=== PATIENT | male | born 1980 | race Caucasian/White ===

== ENCOUNTER 2018-07-11 03:43 | Emergency (ER) | payer SELFPAY ==
[~2018-07-11 03:43] MED LIST: FAMOTIDINE 20 MG/50 ML IVPB 20 MG/50 ML MG IVPB ONE; ONDANSETRON 4 MG/2 ML VIAL IVPUSH ONE
[2018-07-11] MEDS ORDERED: LACTATED RINGERS SOLUTION 1,000 ML IV STA (03:57)
[2018-07-11] MEDS ORDERED: ACETAMINOPHEN 1000 MG/100 ML VIAL (NON FORMULARY) IVPB ONE (03:57)
[2018-07-11] MEDS ORDERED: SODIUM CHLORIDE 0.9% 500 ML INFUS.BAG IV ONE (04:02)
[2018-07-11 04:08] LABS: BASO % 0.2 % (0-2.0); EOS % 0.8 % (0-4.5); HEMATOCRIT 33.5 % (35.4-49); HEMOGLOBIN 11.4 GM/dL (11.7-16.9); LYMPH % 25.3 % (8-40); MCH 29.5 pg (25.7-33.7); MEAN CELL VOLUME 86.7 fl (80-96); NEUT % 59.7 % (42.8-82.8); PLATELET COUNT 228 K/MM3 (134-434); RBC 3.86 M/mm3 (4.00-5.60); RDW 13.8 % (11.9-15.9); WHITE BLOOD COUNT 4.2 K/mm3 (4.0-10.0)
[2018-07-11 04:11] VITALS: BP 137/82; PULSE 94; TEMP 98.6
--- NOTE | 2018-07-11 04:22 | PDOC ---
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 Usually drinks bottle of wine daily. +suspicious food intake , where he had eaten rice and regular food and meat, with one sick coworker as well. Has been off his HAART x3 months due to work and life. Last CD4 check unknown months ago ~600. - Physicial Exam PE: 07/11/18 04:49 NAD, well appearing, comfortable. PERRL, EOMI, MMM, +superficial tongue ulcer, nonbleeding. nl conjunctiva, anicteric; neck supple. lungs clear, RRR, abdomen soft nontender. no angelo's or mcburney's point tenderness. No flank tenderness. exam deferred by patient. VYAS x4, no focal neuro deficits. No peripheral edema. normal color for ethnicity, WWP. 07/11/18 04:53 - Medical Decision Making 07/11/18 04:51 38 YOM with HIV p/w n/v x 2 days, +etoh use. also intermittent lower back tenderness x 1 week, denies exacerbating or alleviating factors. +food precipitant. DDx abdominal pain: Renal colic, biliary colic, metabolic/electrolyte derangements. GERD, PUD, esophageal spasm, pancreatitis, hepatitis, constipation , colitis, gastroenteritis, cholecystitis, UTI, pyelonephritis. STD (GC/ chlamydia, herpetic lesions) Vital signs reviewed, wnl. HR in 90s. Prior notes reviewed, including admissions, discharges and consultations. laboratory results and imaging reviewed, basic labs and lytes wnl, notable for LFTs and lipase_normal. mild anemia noted, unclear prior baseline as no prior results. guaiac neg, so doubt occult GIB as source. UA_negative. In the ED, he was given IVF, antiemetics; no analgesia, no abdominal tenderness or peritoneal findings, nontoxic appearing, doubt emergent or intra abdominal pathology. Given GI cocktail with relief. Tolerated PO challenge on reassessment. no indication for CT imaging at this time as unremarkable physical examination at bedside as documented.. Did defer exam to eval for GC/chlamydia/viral lesions, as he was also poorly cooperative with fully undressing for physical exam and evaluation. with sx and HIV positive history, though limited exam, treat with cef/azithro x1 for presumed STD, f/u pcr testing. f/u urine cultures, prelime does not appear infected Dispo: I discussed the physical exam findings, ancillary test results and final diagnoses with the patient. I answered all of the patient's questions. The patient was satisfied with the care received and felt comfortable with the discharge plan and treatment plan. The patient will return to the Emergency Department with any new, persistent or worsening symptoms. 07/11/18 06:59
--- NOTE | 2018-07-11 04:27 | PDOC ---
History of Present Illness - General History Source: Patient Exam Limitations: No Limitations - History of Present Illness Initial Comments: 07/11/18 04:22 The patient is a 38M with a PMH of HIV (not on medical therapy for 3 months) who presents to the ER with multiple complaints. The patient states that he has had nausea, vomiting, and diarrhea for the past 3-4 days. He states that he initially felt like he was hungover and when his symptoms did not go away and he was not able to tolerate PO for 2 days, he decided to present to the ED. These symptoms are associated with chills but no fevers, CP, or SOB. In addition to this complaint, the patient states that he has had lower back pain for the past week which is associated with tingling. He denies any fevers, IVDA , bowel/bladder incontinence, trauma, numbness, or weakness in his lower extremity. He admits to dysuria without discharge. <Todd Llanos - Last Filed: 07/11/18 06:41> <Jett Krause - Last Filed: 07/11/18 07:15> - General Stated Complaint: VOMITING Time Seen by Provider: 07/11/18 03:46 Past History - Suicide/Smoking/Psychosocial Hx Smoking History: Never smoked Have you smoked in the past 12 months: No Hx Alcohol Use: No Substance Use Type: None <Todd Llanos - Last Filed: 07/11/18 06:41> <Jett Krause - Last Filed: 07/11/18 07:15> - Past Medical History Allergies/Adverse Reactions: Allergies Allergy/AdvReac Type Severity Reaction Status Date / Time No Known Allergies Allergy Verified 02/10/15 13:11 Home Medications: Ambulatory Orders Metoclopramide HCl [Reglan] 10 mg PO TID PRN #20 tablet 02/10/15 Naproxen [Naprosyn -] 500 mg PO BID #30 tablet 02/10/15 Oxycodone HCl/Acetaminophen [Percocet 5/325 -] 1 - 2 tab PO Q6H PRN #20 tab Ondansetron [Zofran -] 4 mg PO TID #14 tablet 07/11/18 Review of Systems - Review of Systems Able to Perform ROS?: Yes Comments:: 07/11/18 04:29 GENERAL/CONSTITUTIONAL: Positive for chills. No fever. No weakness. HEAD, EYES, EARS, NOSE AND THROAT: No change in vision. No ear pain or discharge. No sore throat. CARDIOVASCULAR: No chest pain, palpitations, or lightheadedness. RESPIRATORY: No cough, wheezing, shortness of breath, or hemoptysis. GASTROINTESTINAL: Positive for nausea, vomiting, and diarrhea. GENITOURINARY: Positive for dysuria. No frequency, hematuria, or change in urination. MUSCULOSKELETAL: No joint or muscle swelling or pain. No neck or back pain. SKIN: No rash or lesions. NEUROLOGIC: No headache, numbness, tingling, focal weakness, loss of consciousness, or change in strength/sensation. Is the patient limited [place] proficient: No <Todd Llanos - Last Filed: 07/11/18 06:41> *Physical Exam - Vital Signs Last Vital Signs Temp Pulse Resp BP Pulse Ox 98.6 F 94 H 20 137/82 99 07/11/18 03:55 07/11/18 03:55 07/11/18 03:55 07/11/18 03:55 07/11/18 03:55 - Physical Exam Comments: 07/11/18 04:34 GENERAL: Well developed, well nourished. Awake and alert. Mildly uncomfortable appearing. HEENT: Normocephalic, atraumatic. Hearing grossly normal. Moist mucous membranes. PERRLA, EOMI. No conjunctival pallor. Sclera are non-icteric. NECK: Supple. Full ROM. No JVD. CARDIOVASCULAR: Regular rate and rhythm. No murmurs, rubs, or gallops. PULMONARY: No evidence of respiratory distress. Lungs clear to auscultation bilaterally. No wheezing, rales or rhonchi. ABDOMINAL: Soft. Non-tender. Non-distended. No rebound or guarding. GENITOURINARY: No CVA tenderness bilaterally. MUSCULOSKELETAL: No midline spine tenderness. Normal range of motion at all joints. No bony deformities or tenderness. EXTREMITIES: No cyanosis. No clubbing. No edema. No calf tenderness or swelling. SKIN: Warm and dry. Normal capillary refill. No rashes. No jaundice. NEUROLOGICAL: Alert, awake, appropriate. Cranial nerves 2-12 grossly intact. No deficits to light touch and temperature in lower extremities. 5/5 strength in dquadriceps, hamstrings, and gastrocnemius. Normal speech. Gait is normal without ataxia. PSYCHIATRIC: Cooperative. Good eye contact. Appropriate mood and affect. <Todd Llanos - Last Filed: 07/11/18 06:41> - Vital Signs Last Vital Signs Temp Pulse Resp BP Pulse Ox 98.6 F 94 H 20 137/82 99 07/11/18 04:13 07/11/18 04:13 07/11/18 04:13 07/11/18 04:13 07/11/18 04:13 <Jett Krause - Last Filed: 07/11/18 07:15> ED Treatment Course - LABORATORY CBC & Chemistry Diagram: 07/11/18 03:55 07/11/18 03:55 - ADDITIONAL ORDERS Additional order review: 07/11/18 03:55 RBC 3.86 L MCV 86.7 MCHC 34.0 RDW 13.8 MPV 7.0 L Neutrophils % 59.7 Lymphocytes % 25.3 Monocytes % 14.0 H Eosinophils % 0.8 Basophils % 0.2 <Todd Llanos - Last Filed: 07/11/18 06:41> - LABORATORY CBC & Chemistry Diagram: 07/11/18 03:55 07/11/18 03:55 - ADDITIONAL ORDERS Additional order review: Laboratory Results 07/11/18 07/11/18 07/11/18 05:45 05:45 03:55 Sodium 141 Potassium 4.2 Chloride 105 Carbon Dioxide 29 Anion Gap 7 L BUN 14 Creatinine 1.2 Creat Clearance w eGFR > 60 Random Glucose 102 Calcium 8.6 Total Bilirubin 0.2 AST 28 ALT 29 Alkaline Phosphatase 109 Total Protein 8.5 H Albumin 3.2 L Lipase 170 Urine Color Yellow Urine Appearance Clear Urine pH 5.0 Ur Specific [place] 1.025 Urine Protein Negative Urine Glucose (UA) Negative Urine Ketones Negative Urine Blood Negative Urine Nitrite Negative Urine Bilirubin Negative Urine Urobilinogen Negative Ur Leukocyte Esterase Negative Stool Occult Blood Negative 07/11/18 03:55 RBC 3.86 L MCV 86.7 MCHC 34.0 RDW 13.8 MPV 7.0 L Neutrophils % 59.7 Lymphocytes % 25.3 Monocytes % 14.0 H Eosinophils % 0.8 Basophils % 0.2 - Medications Given in the ED: ED Medications Discontinued Medications Generic Name Dose Route Start Last Admin Trade Name Katya PRN Reason Stop Dose Admin Acetaminophen 1,000 mg 07/11/18 03:57 07/11/18 04:00 Ofirmev Injection - IVPB 07/11/18 03:58 Not Given ONCE ONE Lactated Ringer's 1,000 mls @ 1,000 mls/hr 07/11/18 03:57 07/11/18 04:00 Lactated Ringers Solution IV 07/11/18 04:56 1,000 mls/hr ONCE STA Administration Ondansetron HCl 4 mg 07/11/18 03:30 07/11/18 03:45 Zofran Injection IVPUSH 07/11/18 03:31 4 mg ONCE ONE Administration Sodium Chloride 1,000 ml 07/11/18 04:02 07/11/18 04:05 Normal Saline - IV 07/11/18 04:03 1,000 ml ONCE ONE Administration <JimiVanJett - Last Filed: 07/11/18 07:15> Medical Decision Making - Medical Decision Making 07/11/18 04:36 The patient is a 38M with a PMH of HIV, not on antiviral therapy for 3 months who presents to the ER with complaints of nausea, vomiting, and back pain. Concern for colitis, pancreatitis, hepatitis for GI complaints, as well as GC/ Chla for dysuria. Back pain likely MSK as the patient, but concerning for other pathology as it is worse in the morning and then improves and is associated with tingling, possibly [id number] pathologies. Pending labs. Will hold off on imaging. Pt refusing exam. Will treat GI complaints symptomatically. 07/11/18 04:48 WBC of 4.2 therefore the patient has a competent immune system making his presentation less concerning for AIDS defining illnesses and atypical nausea/ vomiting and BP presentations. CMP WNL. Total protein slightly elevated. Liver enzymes WNL. 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 Lipase negative. Hgb of 11.5. No priors on pt. Will ask about hematuria/hematochezia/melena. 07/11/18 05:49 ESR 90, likely 2/2 chronic inflammation due to untreated HIV. Stool occult and UA/UCx sent. Pending results. I have stressed the importance of following up with PMD and ID MD's as well as restarting HIV therapy. Pt agrees and understands but states that he has "a lot more important things going on". 07/11/18 06:37 UA negative. Pending GC/Chla. Will treat for presumed GC/Chla and d/c with PCP f /u. <Todd Llanos - Last Filed: 07/11/18 06:41> *DC/Admit/Observation/Transfer - Discharge Dispostion Decision to Admit order: No <Todd Llanos - Last Filed: 07/11/18 06:41> <Jett Krause - Last Filed: 07/11/18 07:15> Diagnosis at time of Disposition: Nausea and vomiting Qualifiers: Vomiting type: unspecified Vomiting Intractability: non-intractable Qualified Code(s): R11.2 - Nausea with vomiting, unspecified - Discharge Dispostion Disposition: HOME Condition at time of disposition: Stable - Prescriptions Prescriptions: Ondansetron [Zofran -] 4 mg PO TID #14 tablet - Patient Instructions Printed Discharge Instructions: DI for Vomiting -- Adult Additional Instructions: Please follow up with your primary care physician in 2-3 days. Please follow up with your ID doctor as well. Please return to the ER if you have any signs or symptoms of chest pain, shortness of breath, uncontrollable fever, chills, nausea, vomiting, numbness, tingling, or weakness in any part of your body, changes in vision, or slurred speech. Please take your medications as prescribed. Please return to the ER if symptoms persist, worsen, or new symptoms arise. - Post Discharge Activity Forms/Work/School Notes: Back to Work
[2018-07-11 04:39] VITALS: BMI 25.7
[2018-07-11 04:41] LABS: ALBUMIN 3.2 g/dl (3.4-5.0); ALK PHOS 109 U/L (45-117); ANION GAP 7 MMOL/L (8-16); BILIRUBIN,TOTAL 0.2 mg/dL (0.2-1); BLOOD UREA NITROGEN 14 mg/dL (7-18); CALCIUM 8.6 mg/dL (8.5-10.1); CHLORIDE 105 mmol/L (98-107); CO2 29 mmol/L (21-32); CREATININE 1.2 mg/dL (0.55-1.3); GLUCOSE,RANDOM 102 mg/dL (74-106); LIPASE 170 U/L (73-393); POTASSIUM 4.2 mmol/L (3.5-5.1); SGOT/AST 28 U/L (15-37); SGPT/ALT 29 U/L (13-61); SODIUM 141 mmol/L (136-145); TOT PROT 8.5 g/dl (6.4-8.2)
[2018-07-11 05:16] LABS: ERYTHROCYTE SEDIMENTATION RATE 90 mm/hr (0-10)
[2018-07-11] MEDS ORDERED: SODIUM CHLORIDE 0.9% 1000 ML INFUS.BAG IV ONE (05:35)
[2018-07-11 06:19] LABS: URINE APPEARANCE CLEAR; URINE BILIRUBIN NEGATIVE (<2.0 mg/dL); URINE COLOR YELLOW; URINE GLUCOSE (UA) NEGATIVE (NEGATIVE); URINE KETONE NEGATIVE (NEGATIVE); URINE LEUK ESTERASE NEGATIVE (NEGATIVE); URINE NITRITE NEGATIVE (NEGATIVE); URINE PROTEIN NEGATIVE (NEGATIVE); URINE UROBILINOGEN NEGATIVE mg/dL (0.2-1.0)
[2018-07-11] MEDS ORDERED: AZITHROMYCIN 500 MG TABLET PO ONE (06:41)
[2018-07-11] MEDS ORDERED: AZITHROMYCIN 250 MG TABLET ONE (06:51)
[2018-07-11] MEDS ORDERED: LIDOCAINE HCL 2% (20ML MULTI-DOSE VIAL) NR ONE (07:09)
== END 2018-07-11 07:23 | disposition home or self-care (01) ==
LOC: JER 03:43
PROC: 3E02329 Introduction of Other Anti-infective into Muscle, Percutaneous Approach (ICD-10-PCS; principal; 2018-07-11)
PROC: 3E0337Z Introduction of Electrolytic and Water Balance Substance into Peripheral Vein, Percutaneous Approach (ICD-10-PCS; 2018-07-11)
PROC: 3E033GC Introduction of Other Therapeutic Substance into Peripheral Vein, Percutaneous Approach (ICD-10-PCS; 2018-07-11)
DX: R11.2 Nausea with vomiting, unspecified (principal); Z21 Asymptomatic human immunodeficiency virus [HIV] infection status
CPT/HCPCS: 36415; 80053; 81003; 82272; 83690; 85025; 85651; 87086; 99283-25; J7030

== ENCOUNTER 2019-02-05 11:53 | Emergency (ER) | payer SELFPAY | END 2019-02-05 13:20 | disposition home or self-care (01) | LOC: JERFT 11:53 ==